=== PATIENT | male | born 1950 | race Caucasian/White ===

== ENCOUNTER 2023-04-08 15:01 | Emergency (ER) | payer MEDICAID, MEDICARE ==
[~2023-04-08] VITALS: Ht 182.9 cm; Wt 120.0 kg
[2023-04-08] MEDS ORDERED: LIDOCAINE 2% 5ML JELLY UROJET TOP ONE (15:15)
[2023-04-08 16:20] VITALS: BP 149/70; TEMP 98.6; O2SAT 96
== END 2023-04-08 16:30 | disposition home or self-care (01) ==
LOC: M ED 15:01
DX: R33.9 Retention of urine, unspecified (principal); T83.028A Displacement of other urinary catheter, initial encounter; Y73.2 Prosthetic and other implants, materials and accessory gastroenterology and urology devices associated with adverse incidents; N40.1 Benign prostatic hyperplasia with lower urinary tract symptoms; N50.89 Other specified disorders of the male genital organs; I48.91 Unspecified atrial fibrillation; E11.22 Type 2 diabetes mellitus with diabetic chronic kidney disease; I13.10 Hypertensive heart and chronic kidney disease without heart failure, with stage 1 through stage 4 chronic kidney disease, or unspecified chronic kidney disease; I50.9 Heart failure, unspecified; N18.30 Chronic kidney disease, stage 3 unspecified; E78.5 Hyperlipidemia, unspecified; Z88.8 Allergy status to other drugs, medicaments and biological substances; Z79.01 Long term (current) use of anticoagulants

== ENCOUNTER 2023-08-15 09:35 | Emergency (ER) | payer MEDICARE, MEDICAID ==
[~2023-08-15] VITALS: Ht 180.3 cm; Wt 109.1 kg
[2023-08-15] MEDS ORDERED: LevoFLOXacin 750 MG TABLET PO ONE (17:20)
[2023-08-15] MEDS ORDERED: FINA5TAB2 (17:45)
[2023-08-15] MEDS ORDERED: PANT40TA29 (17:45)
[2023-08-15] MEDS ORDERED: SITA50TAB (17:45)
[2023-08-15] MEDS ORDERED: OXYC-517 (17:45)
[2023-08-15] MEDS ORDERED: POTA10CA60 (17:45)
[2023-08-15] MEDS ORDERED: VERA240C3 (17:45)
[2023-08-15] MEDS ORDERED: ELIQ5TAB (17:45)
[2023-08-15] MEDS ORDERED: IRON65TA2 (17:45)
[2023-08-15] MEDS ORDERED: OMEP-173 (17:45)
[2023-08-15] MEDS ORDERED: ATOR1TAB21 (17:45)
[2023-08-15] MEDS ORDERED: FURO40TA2 (17:45)
[2023-08-15] MEDS ORDERED: LEVO1TAB40 PO (17:47)
[2023-08-15 18:07] VITALS: BP 132/64; TEMP 98.1; O2SAT 98
== END 2023-08-15 18:20 | disposition home or self-care (01) ==
LOC: M ED 09:35
DX: T83.098A Other mechanical complication of other urinary catheter, initial encounter (principal); E11.9 Type 2 diabetes mellitus without complications; I10 Essential (primary) hypertension; K21.9 Gastro-esophageal reflux disease without esophagitis; N18.30 Chronic kidney disease, stage 3 unspecified; Z86.79 Personal history of other diseases of the circulatory system; Z88.8 Allergy status to other drugs, medicaments and biological substances; Z79.01 Long term (current) use of anticoagulants; Z79.02 Long term (current) use of antithrombotics/antiplatelets; Z79.83 Long term (current) use of bisphosphonates; Z79.899 Other long term (current) drug therapy